=== PATIENT | female | born 1950 ===

== ENCOUNTER 2016-11-25 05:13 | Inpatient (IN) ==
[2016-11-25] MEDS ORDERED: ONDANSETRON 4 MG/2 ML VIAL IV PRN (10:15)
[2016-11-25 10:38] LABS: Basophils % 0.6 % (0.0-0.8); Eosinophils # 0.2 10*3/uL (0.0-0.87); Eosinophils % 6.3 % (0.00-10.9); Hematocrit 28.8 VOL% (35.7-47.0); Lymphocytes # 0.7 10*3/uL (1.4-4.0); Lymphocytes % 22.3 % (21.3-54.2); Mean Corpuscular HGB Conc 34.7 GM/DL (32-36); Mean Corpuscular Hemoglobin 34 PG (27-34); Mean Corpuscular Volume 96.6 FL (87-102); Mean Platelet Volume 8.6 FL (9.6-12.0); Monocytes # 0.3 10*3/uL (0.11-0.8); Monocytes % 7.8 % (1.7-12.7); Neutrophils # 2.1 10*3/uL (1.4-7.4); Platelet Count 112 T/CUMM (130-400); Red Blood Count 2.98 MC/CUMM (3.8-5.5); Red Cell Distribution Width 16.6 % (9.3-17.3); White Blood Count 3.3 T/CUMM (4-12)
[2016-11-25 11:21] LABS: Calcium 9.1 MG/DL (8.5-10.1); Potassium 3.6 MMOL/L (3.5-5.1)
[2016-11-25] MEDS: ENOXAPARIN 30 MG/0.3 ML SYRINGE SUBCUT SCH (11:42)
[2016-11-25] MEDS ORDERED: DEXTROSE 50% 25 GM/50 ML VIAL IV PRN ×2 (14:13)
[2016-11-25] MEDS ORDERED: GLUCAGON 1 MG VIAL IM PRN ×2 (14:13)
[2016-11-25 15:35] LABS: Free T4 (Free Thyroxine) 0.43 NG/DL (0.76-1.46)
[2016-11-25] MEDS: INSULIN REGULAR 100 UNIT/ML SUBCUT SCH ×2 (16:28→21:29)
[2016-11-25] MEDS: DICLOFENAC 1% GEL 100 GM TUBE TOP SCH ×2 (16:56→21:30)
[2016-11-25] MEDS: PHENYTOIN ER 100 MG CAPSULE PO SCH ×2 (16:56→21:29)
[2016-11-25] MEDS: DOCUSATE SODIUM 100 MG CAPSULE PO SCH (21:29)
[2016-11-26 05:23] LABS: Basophils % 0.6 % (0.0-0.8); Eosinophils # 0.2 10*3/uL (0.0-0.87); Eosinophils % 7.5 % (0.00-10.9); Hematocrit 30.4 VOL% (35.7-47.0); Hemoglobin 10.3 GM/DL (12.0-16.0); Immature Granulocytes % 0.3 %; Immature Granulocytes Absolute 0.01 #; Lymphocytes # 0.9 10*3/uL (1.4-4.0); Lymphocytes % 29.3 % (21.3-54.2); Mean Corpuscular HGB Conc 33.9 GM/DL (32-36); Mean Corpuscular Hemoglobin 33 PG (27-34); Mean Corpuscular Volume 97.1 FL (87-102); Mean Platelet Volume 9.2 FL (9.6-12.0); Monocytes # 0.4 10*3/uL (0.11-0.8); Monocytes % 10.9 % (1.7-12.7); Neutrophils # 1.7 10*3/uL (1.4-7.4); Neutrophils % 51.4 % (38.7-73.9); Platelet Count 135 T/CUMM (130-400); Red Blood Count 3.13 MC/CUMM (3.8-5.5); Red Cell Distribution Width 16.8 % (9.3-17.3); White Blood Count 3.2 T/CUMM (4-12)
[2016-11-26 05:54] LABS: Magnesium 2.3 MG/DL (1.8-2.4); Risk Ratio 4.06; VLDL CHOLESTEROL 52.2 MG/DL
[2016-11-26] MEDS ORDERED: LEVOTHYROXINE 50 MCG TABLET PO SCH (07:00)
[2016-11-26 07:50] VITALS: BP 180/82
[2016-11-26] MEDS: INSULIN REGULAR 100 UNIT/ML SUBCUT SCH ×2 (08:26→11:57)
[2016-11-26] MEDS: PHENYTOIN ER 100 MG CAPSULE PO SCH (08:40)
[2016-11-26] MEDS: DICLOFENAC 1% GEL 100 GM TUBE TOP SCH ×2 (08:41→14:01)
[2016-11-26] MEDS: DOCUSATE SODIUM 100 MG CAPSULE PO SCH (08:41)
[2016-11-26] MEDS ORDERED: amLODIPine 10 MG TABLET PO SCH (09:00)
[2016-11-26] MEDS ORDERED: PANTOPRAZOLE 40 MG TABLET PO SCH (09:00)
[2016-11-26] MEDS ORDERED: ASPIRIN EC 81 MG TABLET PO SCH (09:00)
[2016-11-26] MEDS: ENOXAPARIN 30 MG/0.3 ML SYRINGE SUBCUT SCH (11:57)
== END 2016-11-26 14:23 | disposition home or self-care (01) | DRG 313 ==
LOC: SUATTDRO 07:09 → N.TELEN 07:09
PROVIDERS: ADMIT Internal Medicine Nephrology; ATTEND Hospitalist

== ENCOUNTER 2017-10-25 23:35 | Observation (INO) ==
[2017-10-26] MEDS ORDERED: POTASSIUM CHLORIDE 20 MEQ TABLET PO ONE (02:07)
[2017-10-26] MEDS ORDERED: ONDANSETRON 4 MG/2 ML VIAL IV PRN (02:07)
[2017-10-26] MEDS ORDERED: ACETAMINOPHEN 325 MG TABLET PO PRN (02:07)
[2017-10-26] MEDS ORDERED: DEXTROSE 50% 25 GM/50 ML VIAL IV PRN ×2 (02:13→07:08)
[2017-10-26] MEDS ORDERED: GLUCAGON 1 MG VIAL IM PRN ×2 (02:13→07:08)
[2017-10-26] MEDS ORDERED: POTASSIUM CHLORIDE INJ 10 MEQ in SODIUM CHLORIDE 0.9% 1,000 ML IV SCH (03:00)
[2017-10-26 05:38] LABS: Basophils % 0.2 % (0.0-0.8); Eosinophils # 0.2 10*3/uL (0.0-0.87); Eosinophils % 4.8 % (0.00-10.9); Hematocrit 29.3 VOL% (35.7-47.0); Hemoglobin 9.8 GM/DL (12.0-16.0); Immature Granulocytes % 0.4 %; Immature Granulocytes Absolute 0.02 #; Lymphocytes % 21.4 % (21.3-54.2); Mean Corpuscular HGB Conc 33.4 GM/DL (32-36); Mean Corpuscular Hemoglobin 30 PG (27-34); Mean Corpuscular Volume 89.6 FL (87-102); Mean Platelet Volume 9.4 FL (9.6-12.0); Monocytes # 0.4 10*3/uL (0.11-0.8); Neutrophils # 2.9 10*3/uL (1.4-7.4); Neutrophils % 64.2 % (38.7-73.9); Platelet Count 121 T/CUMM (130-400); Red Blood Count 3.27 MC/CUMM (3.8-5.5); Red Cell Distribution Width 14.3 % (9.3-17.3); White Blood Count 4.5 T/CUMM (4-12)
[2017-10-26 05:57] LABS: Albumin 3.1 G/DL (3.4-5.0); Bilirubin,Total 1.9 MG/DL (0.2-1.0); Calcium 9.4 MG/DL (8.5-10.1); Osmolality,Calculated 272.2 MOS/KG (273-304); Total Protein 6.5 G/DL (6.4-8.3)
[2017-10-26] MEDS ORDERED: hydrALAZINE 20 MG/1 ML VIAL IV PRN (08:17)
[2017-10-26] MEDS ORDERED: POTASSIUM CHLORIDE 20 MEQ TABLET PO SCH (09:00)
[2017-10-26] MEDS ORDERED: ATORVASTATIN 40 MG TABLET PO SCH (09:00)
[2017-10-26] MEDS: PANTOPRAZOLE 40 MG TABLET PO SCH (09:02)
[2017-10-26] MEDS: LISINOPRIL 10 MG TABLET PO SCH ×2 (09:02→21:22)
[2017-10-26] MEDS: INSULIN REGULAR 100 UNIT/ML SUBCUT SCH ×4 (10:25→21:21)
[2017-10-27 05:21] LABS: Basophils % 0.5 % (0.0-0.8); Eosinophils # 0.2 10*3/uL (0.0-0.87); Eosinophils % 4.1 % (0.00-10.9); Hematocrit 28.7 VOL% (35.7-47.0); Hemoglobin 9.7 GM/DL (12.0-16.0); Immature Granulocytes % 0.3 %; Immature Granulocytes Absolute 0.01 #; Mean Corpuscular HGB Conc 33.8 GM/DL (32-36); Mean Corpuscular Hemoglobin 30 PG (27-34); Mean Corpuscular Volume 89.1 FL (87-102); Mean Platelet Volume 9.3 FL (9.6-12.0); Monocytes # 0.3 10*3/uL (0.11-0.8); Monocytes % 7.3 % (1.7-12.7); Neutrophils # 2.3 10*3/uL (1.4-7.4); Neutrophils % 61.8 % (38.7-73.9); Platelet Count 114 T/CUMM (130-400); Red Blood Count 3.22 MC/CUMM (3.8-5.5); Red Cell Distribution Width 14.6 % (9.3-17.3); White Blood Count 3.7 T/CUMM (4-12)
[2017-10-27 05:51] LABS: Calcium 8.7 MG/DL (8.5-10.1); Osmolality,Calculated 282.5 MOS/KG (273-304); Potassium 3.7 MMOL/L (3.5-5.1)
[2017-10-27 06:12] LABS: T4 (Thyroxine) 9.4 UG/DL (4.7-13.3); Thyroid Stimulating Hormone 1.26 uIU/ml (0.358-3.74)
[2017-10-27] MEDS ORDERED: LEVOTHYROXINE 125 MCG TABLET PO SCH (07:00)
[2017-10-27 07:32] VITALS: BP 138/56
[2017-10-27] MEDS ORDERED: levETIRAcetam 500 MG TABLET PO SCH (09:00)
[2017-10-27] MEDS: INSULIN REGULAR 100 UNIT/ML SUBCUT SCH ×2 (09:06→12:22)
[2017-10-27] MEDS ORDERED: DOCUSATE SODIUM 100 MG CAPSULE PO PRN (11:41)
[2017-10-27] MEDS: PANTOPRAZOLE 40 MG TABLET PO SCH (12:22)
[2017-10-28] MEDS ORDERED: POLYETHYLENE GLYCOL POWDER 17 GM PACK PO SCH (09:00)
== END 2017-10-27 14:32 | disposition home or self-care (01) ==
LOC: N.5E → SUATTDRO 10-26 00:53
PROVIDERS: ATTEND Hospitalist

== ENCOUNTER 2019-03-04 18:48 | Inpatient (IN) ==
[2019-03-04] MEDS ORDERED: ACETAMINOPHEN 325 MG TABLET PO PRN (21:16)
[2019-03-04] MEDS ORDERED: ONDANSETRON 4 MG/2 ML VIAL IV PRN (21:16)
[2019-03-04] MEDS ORDERED: GLUCAGON 1 MG VIAL IM PRN (21:16)
[2019-03-04] MEDS ORDERED: DEXTROSE 50% 25 GM/50 ML SYRINGE IV PRN (21:16)
[2019-03-04] MEDS ORDERED: BISACODYL 5 MG TABLET PO PRN (21:16)
[2019-03-04] MEDS ORDERED: HEPARIN 5,000 UNIT/1 ML VIAL IV ONE (21:56)
[2019-03-04] MEDS ORDERED: LEVOFLOXACIN INJ 750 MG in PREMIX 1 EACH IV ONE (22:00)
[2019-03-04] MEDS ORDERED: HEPARIN DRIP 25,000 UNITS/500 ML PREMIX IV SCH (22:00)
[2019-03-04] MEDS: INSULIN LISPRO 100 UNIT/ML SUBCUT SCH (22:18)
[2019-03-04] MEDS ORDERED: HEPARIN 5,000 UNIT/1 ML VIAL IV PRN (22:19)
[2019-03-04] MEDS ORDERED: VANCOMYCIN INJ 1,000 MG in SODIUM CHLORIDE 0.9% 250 ML IV ONE (22:30)
[2019-03-04] MEDS ORDERED: NITROGLYCERIN SL 0.4 MG TABLET SL PRN (22:32)
[2019-03-04] MEDS ORDERED: POTASSIUM CHLORIDE 20 MEQ TABLET PO ONE (22:38)
[2019-03-04 23:01] LABS: PT Patient Result 11.2 SECS (9.6-12.2); Partial Thromboplastin Time 34.5 SECS (20.8-36.0)
[2019-03-04] MEDS ORDERED: VANCOMYCIN INJ 500 MG in SODIUM CHLORIDE 0.9% 100 ML IV PRN (23:15)
[2019-03-04] MEDS: PIPERACILLIN/TAZOBACTAM 3,375 MG in SODIUM CHLORIDE 0.9% 100 ML IV SCH (23:38)
[2019-03-05] MEDS: ALBUTEROL/IPRATROPIUM 3 ML NEB RESP TX SCH ×4 (00:49→21:05)
[2019-03-05 03:33] LABS: Basophils % 0.4 % (0.0-0.8); Eosinophils # 0.1 10*3/uL (0.0-0.87); Eosinophils % 0.9 % (0.00-10.9); Hemoglobin 9.7 GM/DL (12.0-16.0); Immature Granulocytes % 0.4 %; Immature Granulocytes Absolute 0.02 #; Lymphocytes # 0.9 10*3/uL (1.4-4.0); Lymphocytes % 15.9 % (21.3-54.2); Mean Corpuscular HGB Conc 32.3 GM/DL (32-36); Mean Corpuscular Volume 88.5 FL (87-102); Mean Platelet Volume 9.4 FL (9.6-12.0); Monocytes % 12.8 % (1.7-12.7); Neutrophils % 69.6 % (38.7-73.9); Platelet Count 103 T/CUMM (130-400); Red Blood Count 3.39 MC/CUMM (3.8-5.5); Red Cell Distribution Width 14.5 % (9.3-17.3); White Blood Count 5.7 T/CUMM (4-12)
[2019-03-05 03:43] LABS: Risk Ratio 3.19; VLDL CHOLESTEROL 15.2 MG/DL
[2019-03-05 03:52] LABS: Albumin 2.4 G/DL (3.4-5.0); Bilirubin,Total 1.1 MG/DL (0.2-1.0); Calcium 8.1 MG/DL (8.5-10.1); Osmolality,Calculated 269.2 MOS/KG (273-304); Thyroid Stimulating Hormone 0.196 uIU/ml (0.358-3.74); Total Protein 5.9 G/DL (6.4-8.3)
[2019-03-05 03:53] LABS: INR 1.1; PT Patient Result 11.9 SECS (9.6-12.2)
[2019-03-05 04:11] LABS: Partial Thromboplastin Time 129.8 SECS (20.8-36.0)
[2019-03-05 07:59] LABS: INR 1.1; PT Patient Result 11.4 SECS (9.6-12.2)
[2019-03-05 08:06] LABS: Partial Thromboplastin Time 64.1 SECS (20.8-36.0)
[2019-03-05] MEDS: INSULIN LISPRO 100 UNIT/ML SUBCUT SCH ×4 (08:55→21:34)
[2019-03-05] MEDS: POTASSIUM CHLORIDE 20 MEQ TABLET PO SCH ×2 (09:25→11:22)
[2019-03-05] MEDS: PIPERACILLIN/TAZOBACTAM 3,375 MG in SODIUM CHLORIDE 0.9% 100 ML IV SCH (12:38)
[2019-03-05] MEDS: levETIRAcetam 500 MG TABLET PO SCH ×2 (14:39→21:35)
[2019-03-05] MEDS: lisinopriL 20 MG TABLET PO SCH (14:39)
[2019-03-05] MEDS: SEVELAMER CARBONATE POWDER 2.4 GM PACK PO SCH ×2 (14:39→21:35)
[2019-03-05] MEDS: HEPARIN 5,000 UNIT/1 ML VIAL SUBCUT SCH (21:35)
[2019-03-06] MEDS: PIPERACILLIN/TAZOBACTAM 3,375 MG in SODIUM CHLORIDE 0.9% 100 ML IV SCH ×2 (00:02→17:30)
[2019-03-06] MEDS: ALBUTEROL/IPRATROPIUM 3 ML NEB RESP TX SCH ×4 (01:16→19:31)
[2019-03-06] MEDS: HEPARIN 5,000 UNIT/1 ML VIAL SUBCUT SCH ×2 (05:46→14:07)
[2019-03-06 06:09] LABS: Basophils % 0.5 % (0.0-0.8); Eosinophils # 0.2 10*3/uL (0.0-0.87); Eosinophils % 4.8 % (0.00-10.9); Hematocrit 28.5 VOL% (35.7-47.0); Hemoglobin 9.2 GM/DL (12.0-16.0); Immature Granulocytes % 0.5 %; Immature Granulocytes Absolute 0.02 #; Lymphocytes # 0.9 10*3/uL (1.4-4.0); Lymphocytes % 23.8 % (21.3-54.2); Mean Corpuscular HGB Conc 32.3 GM/DL (32-36); Mean Corpuscular Volume 89.3 FL (87-102); Mean Platelet Volume 9.6 FL (9.6-12.0); Monocytes % 12.6 % (1.7-12.7); Neutrophils % 57.8 % (38.7-73.9); Platelet Count 117 T/CUMM (130-400); Red Blood Count 3.19 MC/CUMM (3.8-5.5); Red Cell Distribution Width 14.4 % (9.3-17.3); White Blood Count 3.7 T/CUMM (4-12)
[2019-03-06 06:38] LABS: Calcium 8.6 MG/DL (8.5-10.1); Osmolality,Calculated 275.1 MOS/KG (273-304)
[2019-03-06] MEDS ORDERED: LEVOTHYROXINE 125 MCG TABLET PO SCH (07:00)
[2019-03-06] MEDS: levETIRAcetam 500 MG TABLET PO SCH ×2 (08:02→21:34)
[2019-03-06] MEDS: lisinopriL 20 MG TABLET PO SCH (08:02)
[2019-03-06] MEDS: INSULIN LISPRO 100 UNIT/ML SUBCUT SCH ×4 (08:03→21:34)
[2019-03-06] MEDS: SEVELAMER CARBONATE POWDER 2.4 GM PACK PO SCH ×3 (08:03→21:34)
[2019-03-06] MEDS ORDERED: LEVOFLOXACIN INJ 100 ML IV SCH (22:00)
[2019-03-07] MEDS: ALBUTEROL/IPRATROPIUM 3 ML NEB RESP TX SCH ×4 (00:14→19:29)
[2019-03-07] MEDS: PIPERACILLIN/TAZOBACTAM 3,375 MG in SODIUM CHLORIDE 0.9% 100 ML IV SCH ×2 (01:11→11:42)
[2019-03-07 05:20] LABS: Hematocrit 29.8 VOL% (35.7-47.0); Hemoglobin 9.3 GM/DL (12.0-16.0); Mean Corpuscular HGB Conc 31.2 GM/DL (32-36); Mean Corpuscular Volume 90.3 FL (87-102); Red Cell Distribution Width 14.5 % (9.3-17.3); White Blood Count 3.5 T/CUMM (4-12)
[2019-03-07 05:21] LABS: Basophils % 0.6 % (0.0-0.8); Eosinophils # 0.2 10*3/uL (0.0-0.87); Eosinophils % 6.2 % (0.00-10.9); Immature Granulocytes % 0.3 %; Immature Granulocytes Absolute 0.01 #; Lymphocytes # 1.1 10*3/uL (1.4-4.0); Mean Platelet Volume 9.8 FL (9.6-12.0); Monocytes % 9.9 % (1.7-12.7); Platelet Count 125 T/CUMM (130-400)
[2019-03-07 05:57] LABS: Calcium 8.7 MG/DL (8.5-10.1); Osmolality,Calculated 269.1 MOS/KG (273-304)
[2019-03-07] MEDS: INSULIN LISPRO 100 UNIT/ML SUBCUT SCH ×4 (07:47→21:09)
[2019-03-07] MEDS: levETIRAcetam 500 MG TABLET PO SCH ×2 (08:45→21:10)
[2019-03-07] MEDS: lisinopriL 20 MG TABLET PO SCH (08:45)
[2019-03-07] MEDS: SEVELAMER CARBONATE POWDER 2.4 GM PACK PO SCH ×3 (08:46→16:50)
[2019-03-08] MEDS: ALBUTEROL/IPRATROPIUM 3 ML NEB RESP TX SCH ×3 (00:55→13:37)
[2019-03-08] MEDS: PIPERACILLIN/TAZOBACTAM 3,375 MG in SODIUM CHLORIDE 0.9% 100 ML IV SCH ×2 (01:15→12:24)
[2019-03-08] MEDS: levETIRAcetam 500 MG TABLET PO SCH (08:56)
[2019-03-08] MEDS: lisinopriL 20 MG TABLET PO SCH (08:56)
[2019-03-08] MEDS: SEVELAMER CARBONATE POWDER 2.4 GM PACK PO SCH ×2 (08:57→12:28)
[2019-03-08] MEDS: INSULIN LISPRO 100 UNIT/ML SUBCUT SCH ×2 (08:59→12:14)
[2019-03-08 12:18] VITALS: BP 117/57
== END 2019-03-08 15:22 | disposition home health service (06) | DRG 682 ==
LOC: N.CC 20:26 → N.TELEN 03-05 12:27
PROVIDERS: ADMIT Internal Medicine; ATTEND Internal Medicine

== ENCOUNTER 2019-05-23 14:05 | Observation (INO) ==
[2019-05-23] MEDS ORDERED: ZALEPLON 5 MG CAPSULE PO PRN (16:55)
[2019-05-23] MEDS ORDERED: MORPHINE 4 MG/1 ML VIAL IV PRN (16:55)
[2019-05-23] MEDS ORDERED: ONDANSETRON 4 MG/2 ML VIAL IV PRN (16:55)
[2019-05-23] MEDS ORDERED: ACETAMINOPHEN 325 MG TABLET PO PRN (16:55)
[2019-05-23] MEDS ORDERED: DEXTROSE 50% 25 GM/50 ML VIAL IV PRN ×2 (16:55)
[2019-05-23] MEDS ORDERED: GLUCAGON 1 MG VIAL IM PRN ×2 (16:55)
[2019-05-23 17:43] LABS: Basophils % 0.5 % (0.0-0.8); Eosinophils # 0.2 10*3/uL (0.0-0.87); Hematocrit 36.8 VOL% (35.7-47.0); Hemoglobin 11.7 GM/DL (12.0-16.0); Immature Granulocytes % 0.4 %; Immature Granulocytes Absolute 0.03 #; Lymphocytes # 0.9 10*3/uL (1.4-4.0); Lymphocytes % 11.6 % (21.3-54.2); Mean Corpuscular HGB Conc 31.8 GM/DL (32-36); Mean Corpuscular Volume 96.1 FL (87-102); Mean Platelet Volume 9.2 FL (9.6-12.0); Monocytes % 7.4 % (1.7-12.7); Neutrophils % 78.1 % (38.7-73.9); Platelet Count 169 T/CUMM (130-400); Red Blood Count 3.83 MC/CUMM (3.8-5.5); Red Cell Distribution Width 14.8 % (9.3-17.3); White Blood Count 8.1 T/CUMM (4-12)
[2019-05-23 18:09] LABS: Calcium 9.9 MG/DL (8.5-10.1); Osmolality,Calculated 273.8 MOS/KG (273-304)
[2019-05-23 18:52] LABS: PT Patient Result 10.3 SECS (9.8-11.9); Partial Thromboplastin Time 32.9 SECS (23.9-33.8)
[2019-05-23] MEDS: INSULIN LISPRO 100 UNIT/ML SUBCUT SCH (21:47)
[2019-05-24] MEDS ORDERED: POTASSIUM CHLORIDE 20 MEQ TABLET PO ONE (00:52)
[2019-05-24 06:04] LABS: Basophils % 0.4 % (0.0-0.8); Eosinophils # 0.2 10*3/uL (0.0-0.87); Eosinophils % 2.9 % (0.00-10.9); Hematocrit 33.3 VOL% (35.7-47.0); Hemoglobin 10.9 GM/DL (12.0-16.0); Immature Granulocytes % 0.5 %; Immature Granulocytes Absolute 0.04 #; Lymphocytes # 1.6 10*3/uL (1.4-4.0); Lymphocytes % 20.3 % (21.3-54.2); Mean Corpuscular HGB Conc 32.7 GM/DL (32-36); Mean Corpuscular Volume 94.9 FL (87-102); Mean Platelet Volume 9.2 FL (9.6-12.0); Neutrophils % 67.9 % (38.7-73.9); Platelet Count 173 T/CUMM (130-400); Red Blood Count 3.51 MC/CUMM (3.8-5.5); Red Cell Distribution Width 14.8 % (9.3-17.3); White Blood Count 7.9 T/CUMM (4-12)
[2019-05-24] MEDS: LEVOTHYROXINE 125 MCG TABLET PO SCH (06:36)
[2019-05-24] MEDS: INSULIN LISPRO 100 UNIT/ML SUBCUT SCH ×4 (08:50→21:43)
[2019-05-24 08:52] LABS: Calcium 9.8 MG/DL (8.5-10.1)
[2019-05-24] MEDS: levETIRAcetam 500 MG TABLET PO SCH (10:09)
[2019-05-24] MEDS: ASPIRIN EC 325 MG TABLET PO SCH (10:09)
[2019-05-24] MEDS ORDERED: HEPARIN 10,000 UNIT/10 ML VIAL IV SCH (20:15)
[2019-05-25] MEDS: LEVOTHYROXINE 125 MCG TABLET PO SCH (05:43)
[2019-05-25] MEDS: INSULIN LISPRO 100 UNIT/ML SUBCUT SCH ×2 (08:15→12:05)
[2019-05-25] MEDS: levETIRAcetam 500 MG TABLET PO SCH (09:40)
[2019-05-25] MEDS: ASPIRIN EC 325 MG TABLET PO SCH (09:40)
[2019-05-25 10:49] LABS: Troponin I < 0.015 NG/ML (0.00-0.045)
[2019-05-25 12:11] VITALS: BP 168/62
== END 2019-05-25 13:10 | disposition home or self-care (01) ==
LOC: INTOOBSV 16:29 → N.3E 16:29
PROVIDERS: ADMIT Internal Medicine; ATTEND Internal Medicine

== ENCOUNTER 2021-06-08 07:33 | Inpatient (IN) ==
[2021-06-08] MEDS ORDERED: DOCUSATE SODIUM 100 MG CAPSULE PO PRN (10:43)
[2021-06-08] MEDS ORDERED: GLUCAGON 1 MG VIAL IM PRN ×2 (10:43→12:13)
[2021-06-08] MEDS ORDERED: ONDANSETRON 4 MG/2 ML VIAL IV PRN (10:43)
[2021-06-08] MEDS ORDERED: DEXTROSE 10% 25 GM/250 ML BAG IV PRN ×2 (10:43→12:13)
[2021-06-08 11:05] LABS: Basophils % 0.8 % (0.0-0.8); Eosinophils # 0.3 10*3/uL (0.0-0.87); Eosinophils % 4.7 % (0.00-10.9); Hematocrit 32.9 VOL% (35.7-47.0); Hemoglobin 10.9 GM/DL (12.0-16.0); Immature Granulocytes % 0.4 %; Immature Granulocytes Absolute 0.02 #; Lymphocytes # 1.2 10*3/uL (1.4-4.0); Lymphocytes % 21.6 % (21.3-54.2); Mean Corpuscular HGB Conc 33.1 GM/DL (32-36); Mean Corpuscular Volume 91.9 FL (87-102); Mean Platelet Volume 9.2 FL (9.6-12.0); Monocytes # 0.5 10*3/uL (0.11-0.8); Monocytes % 9.2 % (1.7-12.7); Neutrophils % 63.3 % (38.7-73.9); Platelet Count 166 T/CUMM (130-400); Red Blood Count 3.58 MC/CUMM (3.8-5.5); Red Cell Distribution Width 13.4 % (9.3-17.3); White Blood Count 5.3 T/CUMM (4-12)
[2021-06-08 11:24] LABS: Calcium 10.3 MG/DL (8.5-10.1); Potassium 3.5 MMOL/L (3.5-5.1)
[2021-06-08 12:42] LABS: Free T4 (Free Thyroxine) 1.83 NG/DL (0.76-1.46); Thyroid Stimulating Hormone 1.12 uIU/ml (0.358-3.74)
[2021-06-08] MEDS: lisinopriL 20 MG TABLET PO SCH (13:39)
[2021-06-08] MEDS: HEPARIN 5,000 UNIT/1 ML VIAL SUBCUT SCH ×2 (13:40→20:00)
[2021-06-08] MEDS: LEVOTHYROXINE 125 MCG TABLET PO SCH (13:43)
[2021-06-08] MEDS: levETIRAcetam 500 MG TABLET PO SCH (13:44)
[2021-06-08] MEDS: SEVELAMER CARBONATE POWDER 2.4 GM PACK PO SCH ×2 (15:18→20:00)
[2021-06-08] MEDS: INSULIN REGULAR 100 UNIT/ML SUBCUT SCH ×2 (17:34→20:01)
[2021-06-08] MEDS: ACETAMINOPHEN 325 MG TABLET PO PRN (20:00)
[2021-06-08] MEDS ORDERED: hydrALAZINE 20 MG/1 ML VIAL IV PRN ×2 (21:08→22:00)
[2021-06-09] MEDS: HEPARIN 5,000 UNIT/1 ML VIAL SUBCUT SCH ×2 (03:44→12:34)
[2021-06-09 03:53] LABS: Basophils % 0.5 % (0.0-0.8); Eosinophils # 0.3 10*3/uL (0.0-0.87); Hematocrit 32.4 VOL% (35.7-47.0); Hemoglobin 10.7 GM/DL (12.0-16.0); Immature Granulocytes % 0.2 %; Immature Granulocytes Absolute 0.01 #; Lymphocytes # 1.2 10*3/uL (1.4-4.0); Lymphocytes % 21.4 % (21.3-54.2); Mean Platelet Volume 9.1 FL (9.6-12.0); Monocytes # 0.6 10*3/uL (0.11-0.8); Monocytes % 9.8 % (1.7-12.7); Neutrophils % 62.1 % (38.7-73.9); Platelet Count 164 T/CUMM (130-400); Red Blood Count 3.52 MC/CUMM (3.8-5.5); Red Cell Distribution Width 13.4 % (9.3-17.3); White Blood Count 5.7 T/CUMM (4-12)
[2021-06-09 04:01] LABS: PT Patient Result 10.7 SECS (10.5-12.0)
[2021-06-09 04:16] LABS: Calcium 10.1 MG/DL (8.5-10.1); Osmolality,Calculated 276.1 MOS/KG (273-304); Potassium 2.8 MMOL/L (3.5-5.1)
[2021-06-09] MEDS ORDERED: POTASSIUM CHLORIDE 20 MEQ TABLET PO ONE ×2 (07:53→15:00)
[2021-06-09] MEDS: INSULIN REGULAR 100 UNIT/ML SUBCUT SCH ×4 (07:55→21:00)
[2021-06-09] MEDS ORDERED: LACTULOSE 20 GM/30 ML UDCUP PO PRN (10:10)
[2021-06-09] MEDS: cefTRIAXone 1,000 MG in SODIUM CHLORIDE 0.9% 100 ML IV SCH (11:04)
[2021-06-09] MEDS: SEVELAMER CARBONATE POWDER 2.4 GM PACK PO SCH ×3 (12:32→21:24)
[2021-06-09] MEDS: lisinopriL 20 MG TABLET PO SCH (12:33)
[2021-06-09] MEDS: PANTOPRAZOLE 40 MG TABLET PO SCH (12:33)
[2021-06-09] MEDS: LEVOTHYROXINE 125 MCG TABLET PO SCH (12:33)
[2021-06-09] MEDS: levETIRAcetam 500 MG TABLET PO SCH (12:33)
[2021-06-09] MEDS: SODIUM CHLORIDE 0.45% 1,000 ML IV SCH (13:18)
[2021-06-09] MEDS: ACETAMINOPHEN 325 MG TABLET PO PRN (21:23)
[2021-06-10 04:58] LABS: Basophils % 0.7 % (0.0-0.8); Eosinophils # 0.3 10*3/uL (0.0-0.87); Eosinophils % 5.2 % (0.00-10.9); Hematocrit 31.8 VOL% (35.7-47.0); Hemoglobin 10.5 GM/DL (12.0-16.0); Immature Granulocytes % 0.2 %; Immature Granulocytes Absolute 0.01 #; Lymphocytes # 1.1 10*3/uL (1.4-4.0); Lymphocytes % 21.3 % (21.3-54.2); Mean Corpuscular Volume 92.4 FL (87-102); Mean Platelet Volume 10.2 FL (9.6-12.0); Monocytes # 0.5 10*3/uL (0.11-0.8); Monocytes % 9.3 % (1.7-12.7); Neutrophils % 63.3 % (38.7-73.9); Platelet Count 145 T/CUMM (130-400); Red Blood Count 3.44 MC/CUMM (3.8-5.5); Red Cell Distribution Width 13.5 % (9.3-17.3); White Blood Count 5.4 T/CUMM (4-12)
[2021-06-10 05:19] LABS: Calcium 9.9 MG/DL (8.5-10.1); Potassium 3.4 MMOL/L (3.5-5.1)
[2021-06-10] MEDS: INSULIN REGULAR 100 UNIT/ML SUBCUT SCH ×4 (08:01→21:30)
[2021-06-10] MEDS ORDERED: propofoL 200 MG/20 ML VIAL IV ONE (08:03)
[2021-06-10] MEDS: PANTOPRAZOLE 40 MG TABLET PO SCH (09:41)
[2021-06-10] MEDS: ACETAMINOPHEN 325 MG TABLET PO PRN (09:41)
[2021-06-10] MEDS: LEVOTHYROXINE 125 MCG TABLET PO SCH (09:41)
[2021-06-10] MEDS: lisinopriL 20 MG TABLET PO SCH (09:41)
[2021-06-10] MEDS: SEVELAMER CARBONATE POWDER 2.4 GM PACK PO SCH ×3 (09:41→21:11)
[2021-06-10] MEDS: levETIRAcetam 500 MG TABLET PO SCH (09:41)
[2021-06-10] MEDS: SODIUM CHLORIDE 0.45% 1,000 ML IV SCH (09:42)
[2021-06-10] MEDS: cefTRIAXone 1,000 MG in SODIUM CHLORIDE 0.9% 100 ML IV SCH (09:56)
[2021-06-10] MEDS: amLODIPine 5 MG TABLET PO SCH (09:57)
[2021-06-10] MEDS: GABAPENTIN 300 MG CAPSULE PO SCH ×3 (09:57→16:43)
[2021-06-11 08:14] LABS: Basophils # 0.1 10*3/uL (0.0-0.2); Basophils % 0.8 % (0.0-0.8); Eosinophils # 0.3 10*3/uL (0.0-0.87); Eosinophils % 5.3 % (0.00-10.9); Hematocrit 32.3 VOL% (35.7-47.0); Hemoglobin 10.5 GM/DL (12.0-16.0); Immature Granulocytes % 0.3 %; Immature Granulocytes Absolute 0.02 #; Lymphocytes # 1.1 10*3/uL (1.4-4.0); Lymphocytes % 18.1 % (21.3-54.2); Mean Corpuscular HGB Conc 32.5 GM/DL (32-36); Mean Corpuscular Volume 93.6 FL (87-102); Mean Platelet Volume 9.5 FL (9.6-12.0); Monocytes # 0.6 10*3/uL (0.11-0.8); Monocytes % 9.6 % (1.7-12.7); Neutrophils % 65.9 % (38.7-73.9); Platelet Count 154 T/CUMM (130-400); Red Blood Count 3.45 MC/CUMM (3.8-5.5); Red Cell Distribution Width 13.5 % (9.3-17.3); White Blood Count 6.1 T/CUMM (4-12)
[2021-06-11 08:31] LABS: Calcium 9.4 MG/DL (8.5-10.1); Osmolality,Calculated 280.1 MOS/KG (273-304); Potassium 3.8 MMOL/L (3.5-5.1)
[2021-06-11 08:37] LABS: Anisocytosis 1+; Platelet Estimate Normal
[2021-06-11 08:38] LABS: Macrocytosis 1+
[2021-06-11] MEDS: INSULIN REGULAR 100 UNIT/ML SUBCUT SCH ×4 (08:46→20:22)
[2021-06-11] MEDS: SEVELAMER CARBONATE POWDER 2.4 GM PACK PO SCH ×3 (09:35→20:23)
[2021-06-11] MEDS: PANTOPRAZOLE 40 MG TABLET PO SCH (09:36)
[2021-06-11] MEDS: amLODIPine 5 MG TABLET PO SCH (09:36)
[2021-06-11] MEDS: SODIUM CHLORIDE 0.45% 1,000 ML IV SCH (09:36)
[2021-06-11] MEDS: levETIRAcetam 500 MG TABLET PO SCH (09:36)
[2021-06-11] MEDS: lisinopriL 20 MG TABLET PO SCH (09:36)
[2021-06-11] MEDS: LEVOTHYROXINE 125 MCG TABLET PO SCH (09:36)
[2021-06-11] MEDS: ACETAMINOPHEN 325 MG TABLET PO PRN (13:30)
[2021-06-12 06:13] LABS: Basophils % 0.5 % (0.0-0.8); Eosinophils # 0.3 10*3/uL (0.0-0.87); Eosinophils % 5.7 % (0.00-10.9); Hematocrit 29.3 VOL% (35.7-47.0); Hemoglobin 9.6 GM/DL (12.0-16.0); Immature Granulocytes % 0.3 %; Immature Granulocytes Absolute 0.02 #; Lymphocytes # 1.1 10*3/uL (1.4-4.0); Mean Corpuscular HGB Conc 32.8 GM/DL (32-36); Mean Corpuscular Volume 92.4 FL (87-102); Mean Platelet Volume 9.5 FL (9.6-12.0); Monocytes # 0.5 10*3/uL (0.11-0.8); Monocytes % 7.8 % (1.7-12.7); Neutrophils % 66.7 % (38.7-73.9); Platelet Count 137 T/CUMM (130-400); Red Blood Count 3.17 MC/CUMM (3.8-5.5); Red Cell Distribution Width 13.5 % (9.3-17.3)
[2021-06-12 06:36] LABS: Osmolality,Calculated 279.5 MOS/KG (273-304); Potassium 3.9 MMOL/L (3.5-5.1)
[2021-06-12] MEDS: INSULIN REGULAR 100 UNIT/ML SUBCUT SCH ×4 (08:01→20:19)
[2021-06-12] MEDS: PANTOPRAZOLE 40 MG TABLET PO SCH (08:06)
[2021-06-12] MEDS: SEVELAMER CARBONATE POWDER 2.4 GM PACK PO SCH ×3 (08:07→20:16)
[2021-06-12] MEDS: levETIRAcetam 500 MG TABLET PO SCH (08:07)
[2021-06-12] MEDS: LEVOTHYROXINE 125 MCG TABLET PO SCH (09:23)
[2021-06-12] MEDS: lisinopriL 20 MG TABLET PO SCH (09:34)
[2021-06-12] MEDS: amLODIPine 5 MG TABLET PO SCH (09:35)
[2021-06-12] MEDS: SODIUM CHLORIDE 0.45% 1,000 ML IV SCH (11:27)
[2021-06-12] MEDS: ACETAMINOPHEN 325 MG TABLET PO PRN (20:16)
[2021-06-13 05:30] LABS: Basophils % 0.5 % (0.0-0.8); Eosinophils # 0.3 10*3/uL (0.0-0.87); Eosinophils % 4.9 % (0.00-10.9); Hemoglobin 9.3 GM/DL (12.0-16.0); Immature Granulocytes % 0.3 %; Immature Granulocytes Absolute 0.02 #; Lymphocytes # 1.2 10*3/uL (1.4-4.0); Lymphocytes % 19.5 % (21.3-54.2); Mean Corpuscular HGB Conc 33.2 GM/DL (32-36); Mean Corpuscular Volume 91.5 FL (87-102); Mean Platelet Volume 9.4 FL (9.6-12.0); Monocytes # 0.5 10*3/uL (0.11-0.8); Monocytes % 8.3 % (1.7-12.7); Neutrophils % 66.5 % (38.7-73.9); Platelet Count 139 T/CUMM (130-400); Red Blood Count 3.06 MC/CUMM (3.8-5.5); Red Cell Distribution Width 13.5 % (9.3-17.3); White Blood Count 6.1 T/CUMM (4-12)
[2021-06-13 05:52] LABS: Calcium 9.4 MG/DL (8.5-10.1); Osmolality,Calculated 279.8 MOS/KG (273-304); Potassium 4.1 MMOL/L (3.5-5.1)
[2021-06-13 08:25] VITALS: BP 163/50
[2021-06-13] MEDS: INSULIN REGULAR 100 UNIT/ML SUBCUT SCH ×2 (08:27→14:23)
[2021-06-13] MEDS: lisinopriL 20 MG TABLET PO SCH (08:28)
[2021-06-13] MEDS: SEVELAMER CARBONATE POWDER 2.4 GM PACK PO SCH ×2 (08:28→14:19)
[2021-06-13] MEDS: levETIRAcetam 500 MG TABLET PO SCH (08:28)
[2021-06-13] MEDS: amLODIPine 5 MG TABLET PO SCH (08:28)
[2021-06-13] MEDS: PANTOPRAZOLE 40 MG TABLET PO SCH (08:28)
[2021-06-13] MEDS: LEVOTHYROXINE 125 MCG TABLET PO SCH (09:32)
[2021-06-13] MEDS: SODIUM CHLORIDE 0.45% 1,000 ML IV SCH (16:04)
[2021-06-14] MEDS ORDERED: LEVOTHYROXINE 125 MCG TABLET PO SCH (06:30)
== END 2021-06-13 15:30 | disposition home or self-care (01) | DRG 252 ==
LOC: N.RAD 07:33 → SUATTDRO 10:12 → N.CC 10:12 → N.3E 06-11 14:17
PROVIDERS: ADMIT Radiology Diagnostic Radiology; ATTEND Emergency Medicine